=== PATIENT | female | born 1995 | race Caucasian/White ===

== ENCOUNTER 2018-07-11 14:12 | Emergency (ER) | payer OTHER, BC ==
[2018-07-11 14:13] VITALS: BMI 28.0
[2018-07-11 15:02] VITALS: BP 105/69; PULSE 65; RESP 18; TEMP 98.1; O2SAT 98
[2018-07-11] MEDS ORDERED: Absorbable Gelatin Sponge Size 100 MM ONE (15:43)
[2018-07-11] MEDS ORDERED: Lidocaine 1% Inj (20ml) IJ STA (15:44)
[2018-07-11] MEDS ORDERED: TDAP Vaccine 0.5 mL Syr IM ONE (15:44)
--- NOTE | 2018-07-11 15:52 | ED PDOC ---
Arrival/HPI - General Historian: Patient - History of Present Illness Narrative History of Present Illness (Text): 07/11/18 15:49 23F who comes in w/ c/o cut on her L middle finger. 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 She has good power in her left hand and only complaining of mild middle finger pain w/ some associated numbness. Patient does not remember when her last tetanus vaccination was. Time/Duration: Prior to Arrival, 1-3 hours <Kyle Vizcaino - Last Filed: 07/11/18 17:29> <Geoff Reilly - Last Filed: 07/11/18 18:32> - General Chief Complaint: Abnormal Skin Integrity Time Seen by Provider: 07/11/18 15:32 Past Medical History - Provider Review Nursing Documentation Reviewed: Yes - Tetanus Immunization Tetanus Immunization: Unknown - Reproductive Currently : No - Past Medical History Past Medical History: No Previous - Psychiatric Hx Depression: No Hx Emotional Abuse: No Hx Physical Abuse: No Hx Substance Use: No - Past Surgical History Past Surgical History: No Previous - Suicidal Assessment Feels Threatened In Home Enviroment: No <Kyle Vizcaino - Last Filed: 07/11/18 17:29> Family/Social History - Physician Review Nursing Documentation Reviewed: Yes Family/Social History: No Known Family HX Smoking Status: Never Smoked Hx Alcohol Use: No Hx Substance Use: No <Kyle Vizcaino - Last Filed: 07/11/18 17:29> Allergies/Home Meds <Kyle Vizcaino - Last Filed: 07/11/18 17:29> <Geoff Reilly - Last Filed: 07/11/18 18:32> Allergies/Adverse Reactions: Allergies No Known Allergies Allergy (Verified 07/11/18 15:02) Home Medications: Home Meds Medication Instructions Recorded Confirmed RX: No Known Home Med 10/31/12 07/11/18 Review of Systems - Physician Review All systems were reviewed & negative as marked: Yes - Review of Systems Constitutional: Normal Eyes: Normal ENT: Normal Respiratory: Normal Cardiovascular: Normal Gastrointestinal: Normal Genitourinary Female: Normal Musculoskeletal: Normal Skin: Laceration Neurological: Normal Endocrine: Normal Hemo/Lymphatic: Normal Psychiatric: Normal <Kyle Vizcaino - Last Filed: 07/11/18 17:29> Physical Exam Vital Signs Temp Pulse Resp BP Pulse Ox 07/11/18 14:59 98.1 F 65 18 105/69 98 Temperature: Afebrile Blood Pressure: Normal Pulse: Regular Respiratory Rate: Normal Appearance: Positive for: Well-Appearing, Non-Toxic, Comfortable Pain Distress: None Mental Status: Positive for: Alert and Oriented X 3 - Systems Exam Upper Extremity: Present: Other (Skin abrasion to Left middle finger at distal aspect; approx 5-8cm; no deep laceration appreciated; diffuse bleeding at site site; tender to palpation; left hand able to make fist and open; good power of left hand ) <Kyle Vizcaino - Last Filed: 07/11/18 17:29> Vital Signs Temp Pulse Resp BP Pulse Ox 07/11/18 14:59 98.1 F 65 18 105/69 98 <MelbaGeoff L - Last Filed: 07/11/18 18:32> Medical Decision Making ED Course and Treatment: 07/11/18 15:51 Wound was irrigated Unable to investigate thoroughly due to pain Will perform distal nerve block in order to investigate further Bleeding control w/ pressure and gelfoam 07/11/18 16:32 Distal block performed w/ 3cc lidocaine Finger investigated further - no foreign object found; abrasion of L middle finger approx 5-8mm in length Pressure / Gel Foam applied Tetanus admin Will reassess for bleeding 07/11/18 17:17 Digit reassessed for bleeding; No ooze appreciated Finger dressed and wound care instructions given - Medication Orders Current Medication Orders: Gelatin (Gelfoam Size 100) 1 spg MM ONCE ONE Stop: 07/11/18 15:44 Ibuprofen (Motrin Tab) 600 mg PO STAT STA Stop: 07/11/18 15:45 Lidocaine HCl (Lidocaine 1% (20ml)) 0 ml IJ STAT STA Stop: 07/11/18 15:45 Tetanus/Reduced Diphtheria/Acell Pertussis (Boostrix Vaccine Inj) 0.5 ml IM .ONCE ONE Stop: 07/11/18 15:45 <Kyle Vizcaino - Last Filed: 07/11/18 17:29> ED Course and Treatment: 07/11/18 17:17 Agree with resident note history and physical, assessment and plan. Nerve block performed was supervised by me. Gel Foam applied by Resident was my supervision and bleeding subsided. Tetanus given. Patient has superficial skin avulsion and does not need laceration. She was advised not wet wound for 2 days. She was advised to f/u with her PMD in 1-2days. - Medication Orders Current Medication Orders: Discontinued Medications Gelatin (Gelfoam Size 100) 1 spg MM ONCE ONE Stop: 07/11/18 15:44 Ibuprofen (Motrin Tab) 600 mg PO STAT STA Stop: 07/11/18 15:45 Last Admin: 07/11/18 16:01 Dose: 600 mg MAR Pain/Vitals Document 07/11/18 16:01 JERMAIN (Rec: 07/11/18 16:02 [facility]) Pain Reassessment Is This A Pain ReAssessment? Yes Presence of Pain Presence of Pain Yes Pain Scale Used Protocol: PSCALES Pain Scale Used Numeric Location Left, Right or Bilateral Right Pain Location Body Site Finger Description Sharp Intensity 3 Scale Used Numeric Lidocaine HCl (Lidocaine 1% (20ml)) 0 ml IJ STAT STA Stop: 07/11/18 15:45 Tetanus/Reduced Diphtheria/Acell Pertussis (Boostrix Vaccine Inj) 0.5 ml IM .ONCE ONE Stop: 07/11/18 15:45 Last Admin: 07/11/18 15:58 Dose: 0.5 ml Immunization Registry Document 07/11/18 15:58 JERMAIN (Rec: 07/11/18 16:00 [facility]MAIN [facility]) [facility]-Date provided 07/11/18 <Geoff Reilly - Last Filed: 07/11/18 18:32> Disposition/Present on Arrival - Present on Arrival Any Indicators Present on Arrival: No History of DVT/PE: No History of Uncontrolled Diabetes: No Urinary Catheter: No History of Decub. Ulcer: No History Surgical Site Infection Following: None - Disposition Have Diagnosis and Disposition been Completed?: Yes Disposition Time: 17:18 Patient Plan: Discharge <Kyle Vizcaino - Last Filed: 07/11/18 17:29> <Geoff Reilly - Last Filed: 07/11/18 18:32> - Disposition Diagnosis: Finger abrasion, non-infected Disposition: HOME/ ROUTINE Condition: IMPROVED Discharge Instructions (ExitCare): Skin Abrasions (DC) Additional Instructions: PLEASE KEEP YOUR FINGER DRY FOR 2-3 DAYS; IF FEVER, WORSENING PAIN, NEW ONSET BLEEDING, OR ANY OTHER CONCERNING SYMPTOMS ARISE PLEASE GO TO THE NEAREST EMERGENCY DEPARTMENT IMMEDIATELY REG [place], thank you for letting us take care of you today. Your provider was Geoff Reilly DO/ Kyle Vizcaino DO and you were treated for FINGER ABRASION. The emergency medical care you received today was directed at your acute symptoms. If you were prescribed any medication, please fill it and take as directed. It may take several days for your symptoms to resolve. Return to the Emergency Department if your symptoms worsen, do not improve, or if you have any other problems. Please contact your doctor or call one of the physicians/clinics you have been referred to that are listed on the Patient Visit Information form that is included in your discharge packet. Bring any paperwork you were given at discharge with you along with any medications you are taking to your follow up visit. Our treatment cannot replace ongoing medical care by a primary care provider outside of the emergency department. Thank you for allowing the [facility] team to be part of your care today. If you had an X-Ray or CT scan: A Radiologist will review the ED reading if any change in treatment is needed we will contact you. If you had a blood, urine, or wound culture: It will take several days for the results, if any change in treatment is needed we will contact you. If you had an STI test: It will take 48 hours for the results. Please call after 1 week if you have not heard back. Referrals: Angelica RICHARDSON,Tejinder Mustafa MD [Primary Care Provider] - Follow up with primary Forms: [employer] (Austrian)
== END 2018-07-11 17:30 | disposition home or self-care (01) ==
LOC: ED 14:12
DX: S60.413A Abrasion of left middle finger, initial encounter (principal); W31.82XA Contact with other commercial machinery, initial encounter; Y93.G1 Activity, food preparation and clean up; Y92.89 Other specified places as the place of occurrence of the external cause; Y99.0 Civilian activity done for income or pay; Z23 Encounter for immunization